=== PATIENT | female | born 1970 | race American Indian/Alaskan Native ===

== ENCOUNTER 2020-01-14 00:02 | Emergency (ER) | payer BC ==
[2020-01-14] MEDS ORDERED: SODIUM CHLORIDE 0.9% 1000 ML 1,000 ML IV ONE (01:12)
[2020-01-14] MEDS ORDERED: MORPHINE 4 MG/1 ML INJ IV ONE (01:12)
[2020-01-14] MEDS ORDERED: ONDANSETRON 4 MG/2 ML INJ IV ONE ×2 (01:12→03:05)
[2020-01-14] MEDS ORDERED: FAMOTIDINE 20 MG/2 ML INJ IV ONE (01:12)
[2020-01-14 01:14] LABS: Hematocrit 39.4 % (30.3-42.9); Hemoglobin 13.1 gm/dl (10.1-14.3); Mean Corpuscular HGB Conc 33 % (30-34); Mean Corpuscular Volume 88 fl (79-97); Platelet Count 279 K/mm3 (140-440); Red Blood Count 4.48 M/mm3 (3.65-5.03); Red Cell Distribution Width 15.6 % (13.2-15.2)
[2020-01-14 01:26] LABS: Alanine Aminotransferase 16 units/L (7-56); Albumin 4.1 g/dL (3.9-5); BUN/Creatinine Ratio 11; Blood Urea Nitrogen 10 mg/dL (7-17); Calcium 9.5 mg/dL (8.4-10.2); Hemolysis Index 33
[2020-01-14 01:28] LABS: Bacteria,Urine 3+ /HPF (Negative); Bilirubin,Urine NEG (Negative); Blood,Urine SM (Negative); Color,Urine Yellow (Yellow); Mucus,Urine FEW /HPF; Protein,Urine <15 mg/dL mg/dL (Negative); Urobilinogen,Urine < 2.0 mg/dL (<2.0); WBC,Urine < 1.0 /HPF (0.0-6.0)
--- NOTE | 2020-01-14 02:38 | Cat Scan Report ---
CT abdomen pelvis wo con INDICATION / CLINICAL INFORMATION: Right flank pain radiating to the RUQ and RLQ area. TECHNIQUE: All CT scans at this location are performed using CT dose reduction for ALARA by means of automated e xposure control. COMPARISON: None available. FINDINGS: The lung bases are clear. ABDOMEN: The liver, spleen and pancreas are normal. Bilateral renal cysts. No urinary calculi or hydronephrosis. No small bowel dilatation. There is a small fat-containing umbilical hernia. Pelvis: Diverticulosis of the descending colon. The appendix is normal. There is a right ovarian cyst measuring 4.5 cm. No dependent fluid collections are seen in the pelvis. Hypertrophic degenerative changes are present in the lower thoracic spine. IMPRESSION: 1. Right ovarian cyst measuring 4.5 cm. 2. No acute inflammatory changes are seen in the abdomen or pelvis. 3. Diverticulosis. Signer Name: Michael Dorado MD Signed: 01/14/2020 2:34 AM Workstation Name: [id number]
--- NOTE | 2020-01-14 02:47 | Emergency Department Report ---
ED Abdominal Pain HPI - General Chief Complaint: Abdominal Pain Stated Complaint: LOW ABD PAIN RIGHT LEG PAIN Source: patient Mode of arrival: Ambulatory Limitations: No Limitations - History of Present Illness Initial Comments: Patient is a 49-year-old -Chinese female with past medical history of hypertension and who presented to the ED with acute onset persistent severe right flank pain that radiates to the right lower quadrant with nausea and vomiting for the last 8 hours. Patient states that she has been unable to sleep because of severe pain constant pain in the right lower quadrant and right flank. Patient denies dizziness, syncope, chest pain, shortness of breath, dysuria, urinary frequency and urgency, vaginal bleeding, vaginal discharge, traumatic injury, heavy lifting, diarrhea or headache, fever and chills. MD Complaint: abdominal pain, other (nausea and vomiting) -: Sudden, hour(s) (8) Location: RLQ, R flank Radiation: RLQ, R flank Migration to: no migration Severity: severe Severity scale (0 -10): 9 Quality: aching, sharp Consistency: constant Improves With: nothing Worsens With: nothing Associated Symptoms: denies other symptoms, nausea, vomiting. denies: diarrhea, fever, chills, dysuria, hematochezia, melena, hematuria, syncope, other - Related Data LMP Date: 01/06/20 LMP (females 10-50): last week Previous Rx's Medication Instructions Recorded Last Taken Type Acetaminophen/Codeine [Tylenol 1 tab PO Q6H PRN #12 tab 01/14/20 Unknown Rx /Codeine # 3 tab] Ketorolac [Toradol] 10 mg PO Q8H PRN #20 tablet 01/14/20 Unknown Rx Ondansetron [Zofran Odt] 4 mg PO Q6HR PRN #20 tab.rapdis 01/14/20 Unknown Rx Allergies Allergy/AdvReac Type Severity Reaction Status Date / Time iodine Allergy Anaphylaxis Verified 01/14/20 00:38 ED Review of Systems ROS: Stated complaint: LOW ABD PAIN RIGHT LEG PAIN Other details as noted in HPI Constitutional: denies: chills, fever Eyes: denies: eye pain, eye discharge, vision change ENT: denies: ear pain, throat pain Respiratory: denies: cough, shortness of breath, wheezing Cardiovascular: denies: chest pain, palpitations Endocrine: no symptoms reported Gastrointestinal: abdominal pain, nausea, vomiting. denies: diarrhea Genitourinary: denies: urgency, dysuria, discharge Musculoskeletal: denies: back pain, joint swelling, arthralgia Skin: denies: rash, lesions Neurological: denies: headache, weakness, paresthesias Psychiatric: denies: anxiety, depression Hematological/Lymphatic: denies: easy bleeding, easy bruising ED Past Medical Hx - Past Medical History Previous Medical History?: Yes Hx Hypertension: Yes - Surgical History Past Surgical History?: Yes Hx Cholecystectomy: Yes Additional Surgical History: Tubal 1990, - Social History Smoking Status: Never Smoker Substance Use Type: None - Medications Home Medications: Home Medications Medication Instructions Recorded Confirmed Last Taken Type Acetaminophen/Codeine [Tylenol 1 tab PO Q6H PRN #12 tab 01/14/20 Unknown Rx /Codeine # 3 tab] Ketorolac [Toradol] 10 mg PO Q8H PRN #20 tablet 01/14/20 Unknown Rx Ondansetron [Zofran Odt] 4 mg PO Q6HR PRN #20 tab.rapdis 01/14/20 Unknown Rx ED Physical Exam - General Limitations: No Limitations General appearance: alert, in no apparent distress - Head Head exam: Present: atraumatic, normocephalic, normal inspection - Eye Eye exam: Present: normal appearance, PERRL, EOMI Pupils: Present: normal accommodation - ENT ENT exam: Present: normal exam, normal orophraynx, mucous membranes moist, TM's normal bilaterally, normal external ear exam - Neck Neck exam: Present: normal inspection, full ROM. Absent: tenderness, meningismus, lymphadenopathy - Respiratory Respiratory exam: Present: normal lung sounds bilaterally. Absent: respiratory distress, wheezes, rales, rhonchi, chest wall tenderness, accessory muscle use, decreased breath sounds - Cardiovascular Cardiovascular Exam: Present: regular rate, normal rhythm, normal heart sounds. Absent: systolic murmur, diastolic murmur, rubs, gallop - GI/Abdominal GI/Abdominal exam: Present: soft, tenderness (Palpable right flank and RLQ tenderness with no guarding), normal bowel sounds. Absent: guarding, rebound, hyperactive bowel sounds, hypoactive bowel sounds, organomegaly - Extremities Exam Extremities exam: Present: normal inspection, full ROM, normal capillary refill - Back Exam Back exam: Present: normal inspection, full ROM. Absent: tenderness, CVA tenderness (L), muscle spasm, paraspinal tenderness - Neurological Exam Neurological exam: Present: alert, oriented X3, CN II-XII intact, normal gait, reflexes normal - Psychiatric Psychiatric exam: Present: normal affect, normal mood, anxious - Skin Skin exam: Present: warm, dry, intact, normal color. Absent: rash ED Course Vital Signs 01/14/20 00:28 Temperature 98.6 F Pulse Rate 89 Respiratory 20 Rate Blood Pressure 155/87 O2 Sat by Pulse 100 Oximetry ED Medical Decision Making - Lab Data Result diagrams: 01/14/20 00:46 01/14/20 00:46 - Radiology Data Radiology results: report reviewed, image reviewed Findings [facility] [address] [place] [address] Cat Scan Report Signed Patient: CYNTHIA BRADLEY MR#: [id number] : 1970 Acct:[id number] Age/Sex: 49 / F ADM Date: 01/14/20 Loc: ED Attending Dr: Ordering Physician: ANGELES KENYON Date of Service: 01/14/20 Procedure(s): CT abdomen pelvis wo con Accession Number(s): [id number] cc: ANGELES KENYON CT abdomen pelvis wo con INDICATION / CLINICAL INFORMATION: Right flank pain radiating to the RUQ and RLQ area. TECHNIQUE: All CT scans at this location are performed using CT dose reduction for ALARA by means of automated exposure control. COMPARISON: None available. FINDINGS: The lung bases are clear. ABDOMEN: The liver, spleen and pancreas are normal. Bilateral renal cysts. No urinary calculi or hydronephrosis. No small bowel dilatation. There is a small fat-containing umbilical hernia. Pelvis: Diverticulosis of the descending colon. The appendix is normal. There is a right ovarian cyst measuring 4.5 cm. No dependent fluid collections are seen in the pelvis. Hypertrophic degenerative changes are present in the lower thoracic spine. IMPRESSION: 1. Right ovarian cyst measuring 4.5 cm. 2. No acute inflammatory changes are seen in the abdomen or pelvis. 3. Diverticulosis. Signer Name: Michael Dorado MD Signed: 01/14/2020 2:34 AM Workstation Name: [id number] Transcribed By: ZAHIDA Dictated By: Michael Dorado MD Electronically Authenticated By: Michael Dorado MD Signed Date/Time: 01/14/204 DD/ 8 TD/TT: - Medical Decision Making This is a 49-year-old female with a history of hypertension who presented to the ED with complaint of acute onset right flank and right lower quadrant pain with nausea and vomiting. In the ED, patient is alert and oriented x3 and is not in distress with normal vital signs. Patient however appears to be in significant pain. Patient was treated for pain in the ED and lab test results were reviewed and are all nonactionable except for mild hyponatremia of 132 mmol/L. Abdomen pelvis CT scan without contrast shows right ovarian cyst measuring 4.5 cm. There are no acute inflammatory changes are seen in the abdomen or pelvis. There was incidental finding of diverticulosis. Other differential diagnoses considered include acute appendicitis, kidney stones, diverticulitis, colitis, panc reatitis, cholecystitis or UTI and ovarian cyst. On reevaluation, patient's pain and nausea and vomiting are well controlled with medications. Patient also received 1 L normal saline IV bolus x1. Patient was discharged home on pain medications and antiemetics and was advised to follow-up with her [employer]NA[facility] physician in 2 to 3 days for reevaluation or return to the ED immediately if symptoms get worse. - Differential Diagnosis Appendicitis; Kidney stones; UTI; Colitis; Ovarian cyst; Diverticulitis Critical care attestation.: If time is entered above; I have spent that time in minutes in the direct care of this critically ill patient, excluding procedure time. ED Disposition Clinical Impression: Nausea and vomiting in adult, Cyst of right ovary Abdominal pain Qualifiers: Abdominal location: right lower quadrant Qualified Code(s): R10.31 - Right lower quadrant pain Disposition: DC-01 TO HOME OR SELFCARE Is pt being admited?: No Does the pt Need Aspirin: No Condition: Stable Instructions: Abdominal Pain (ED), Ovarian Cyst (ED) Additional Instructions: Take medication with food, drink plenty of fluids and follow-up with your [facility] [employer]NA[facility] physician or with the [facility] [employer]ION MANAGER physician aviation project manager Dr. Nixon in 2 days for reevaluation. Return to the ED immediately if symptoms get worse. Prescriptions: Ketorolac [Toradol] 10 mg PO Q8H PRN #20 tablet PRN Reason: Pain Acetaminophen/Codeine [Tylenol /Codeine # 3 tab] 1 tab PO Q6H PRN #12 tab PRN Reason: Pain , Severe (7-10) Ondansetron [Zofran Odt] 4 mg PO Q6HR PRN #20 tab.rapdis PRN Reason: Nausea Referrals: BRIDGET NIXON MD [Staff Physician] - 2-3 Days Time of Disposition: 02:58 Print Language: BELARUSIAN
[2020-01-14 02:49] VITALS: BP 145/84
[2020-01-14] MEDS ORDERED: KETOROLAC 30 MG/1 ML INJ IV ONE (03:05)
== END 2020-01-14 03:26 | disposition home or self-care (01) ==
LOC: ED 00:02
DX: N83.201 Unspecified ovarian cyst, right side (principal); R11.2 Nausea with vomiting, unspecified; I10 Essential (primary) hypertension
CPT/HCPCS: 36415; 74176; 80053; 81001; 83690; 85025; 96361; 96374; 96375; 96376; 99284; J1885; J2270; J2405; J7030